=== PATIENT | female | born 2005 | race Caucasian/White ===

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

== ENCOUNTER → 2025-09-05 16:24 | Outpatient (CLI) | payer OTHER, BC, SELFPAY ==
[2025-09-05 17:58] LABS: Urine N gonorrhoeae NOT DETECTED
[2025-09-05 18:01] LABS: Urine Chlamydia NOT DETECTED
== END ==
PROVIDERS: PCP Family Medicine; Visit Provider Nurse Practitioner Family
DX: Z72.51 High risk heterosexual behavior (principal)
CPT/HCPCS: 87491; 87591